=== PATIENT | male | born 1955 | race Caucasian/White ===

== ENCOUNTER 2017-06-22 11:45 | Emergency (ER) | payer MEDICARE ==
[~2017-06-22] VITALS: Ht 172.7 cm; Wt 81.6 kg
[~2017-06-22 11:45] MED LIST: ADV500/50 INH; ALB0.5 INH; ATIVAN; AUG875 PO; AZIT-18 PO; BUDESONIDE NEB; CEP500 PO; DUONEB INH; FORM20VI2 IH; FUR20 PO; FURO-43 PO; GUAI-334 PO; GUAI600T57 PO; HYDR-385 PO; IBU600 PO; IPRA3AMP37 IH; LEVO750T27 PO; LOR5 PO; MELO-150 PO; MON10 PO; MULT1CAP48 PO; OMEP-137 PO; OMEP40CA48 PO; POT10 PO; POT20; PRE10 PO; PRED-1 PO; PROAIRPT IH; SINGULAIR; TIO18R IH; TIO18R INH; VALS160T20 PO
[2017-06-22 11:51] VITALS: BP 159/89
[2017-06-22] MEDS ORDERED: HYDR-4225 PO (12:08)
--- NOTE | 2017-06-22 12:11 | ER Report ---
History and Physical Time Seen By MD: 11:50 Hx. of Stated Complaint: patient reports that he is here for anxiety HPI/ROS CHIEF COMPLAINT: Anxiety HISTORY OF PRESENT ILLNESS: Patient is a 62-year-old male accompanied by his , who presents the ED with complaint of anxiety for the past year that he states has worsened the last couple months. He states that he does have some health issues that have been giving him some increased anxiety including his COPD which she does see a rock splitter for. He does wear oxygen at home. He states that he is on nebulizers for this. 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 He states that he has been given Ativan intermittently by his primary care provider and states that this has been helpful with his anxiety. He states that he has never seen a mental health provider for this. He denies any suicidal or homicidal ideation. REVIEW OF SYSTEMS: Respiratory: No cough, no dyspnea. Cardiovascular: No chest pain, no palpitations. Gastrointestinal: No vomiting, no abdominal pain. Musculoskeletal: No back pain. Allergies: Coded Allergies: No Known Drug Allergies (Verified , 09/07/13) Home Meds Active Scripts Hydroxyzine Hcl (HYDROXYZINE HCL) 25 Mg Tablet, 25 MG PO QID Y for ANXIETY, #20 TAB Prov:DESIRAE URBINA PA-C 06/22/17 Azithromycin 250 Mg Tab (AZITHROMYCIN 250 MG TAB) 250 Mg Tablet, 1 TAB PO QDAY, #4 TAB Prov:MASTER GODDARD DO 12/17/14 Guaifenesin/Codeine Phosphate (GUAIFENESIN AC COUGH SYRUP) 473 Ml Liquid, 5-10 ML PO Q6H for cough, #200 Prov:MASTER GODDARD DO 12/17/14 Reported Medications Levofloxacin 750 Mg Tab (LEVOFLOXACIN 750 MG TAB) 750 Mg Tablet, 750 MG PO HS, # 3 09/09/13 Prednisone 10 Mg Tab (PREDNISONE 10 MG TAB) 10 Mg Tablet, 10 MG PO QDAY TAKE 4 TABS ONCE DAILY FOR 2 DAYS THEN, TAKE 2 TABS ONCE DAILY FOR 2 DAYS THEN, TAKE 1 TAB ONCE DAILY FOR 2 DAYS THEN, OFF! 09/09/13 Omeprazole (OMEPRAZOLE) 40 Mg Capsule., 40 MG PO QDAY 09/09/13 Guaifenesin (MUCINEX) 600 Mg Tablet.er, 600 MG PO BID 09/09/13 Hydrocodone Bit/Acetaminophen (HYDROCODON-ACETAMINOPHEN 5-325) 1 Each Tablet, 1- 2 EACH PO Q6H Y for PAIN 09/09/13 Tiotropium [place] (SPIRIVA) 18 Mcg/Cap Inh, 18 MCG INH DAILY, INH 09/07/13 Ipratropium/Albuterol Sulfate (DUONEB 0.5 MG-3 MG/3 ML SOLN) 3 Ml Ampul.neb, 3 ML IH BID 09/07/13 [Budesonide] No Conflict Check, NEB BID, 0 Refills 02/03/11 Albuterol Sulfate (Proair Hfa) 8.5 Gm Aer.w.adap, 8.5 GM IH Q4H Y for SHORTNESS OF BREATH, 0 Refills 02/03/11 Reviewed Nurses Notes: Yes Hx Smoking: Yes Smoking Status: Current: Every Day Smoker Exposure to Second Hand Smoke?: Yes Hx Substance Use Disorder: No Hx Alcohol Use: Yes (6 PACK/NIGHT) Constitutional Vital Sign - Last 24 Hours 06/22/17 11:51 Temp 97.5 Pulse 98 Resp 20 B/P (MAP) 159/89 Pulse Ox 93 O2 Delivery Room Air Physical Exam General Appearance: The patient is alert, has no immediate need for airway protection and no signs of toxicity. Patient appears to be no acute distress. Eyes: Pupils equal and round no pallor or injection. ENT, Mouth: Mucous membranes are moist. Respiratory: There are no retractions, lungs are clear to auscultation. Cardiovascular: Regular rate and rhythm. Skin: Warm and dry, no rashes. Musculoskeletal: Neck is supple non tender. Extremities are nontender, nonswollen and have full range of motion. Medical Decision Making ED Course/Re-evaluation ED Course Discussed with patient that he should follow up with a mental health care provider for further care of his anxiety. Would like to try him on some hydroxyzine to help with his anxiety. Decision to Disposition Date: Jun 22, 2017 Decision to Disposition Time: 12:06 Depart Departure Latest Vital Signs Vital Signs Date Time Temp Pulse Resp B/P (MAP) Pulse Ox O2 Delivery O2 Flow Rate FiO2 06/22/17 11:51 97.5 98 20 159/89 93 Room Air Impression: Primary Impression: Anxiety Condition: Improved Disposition: HOME OR SELF-CARE Referrals: MELCHOR GODFREY DO (PCP) [facility] New Scripts Hydroxyzine Hcl (HYDROXYZINE HCL) 25 Mg Tablet 25 MG PO QID Y for ANXIETY, #20 TAB Prov: DESIRAE URBINA PA-C 06/22/17 Patient Instructions: Anxiety (ED) Additional Instructions: Follow-up with primary care provider and mental health care provider. If having any worsening or concerning symptoms may return to the emergency department. DESIRAE URBINA PA-C Jun 22, 2017 12:11
== END 2017-06-22 12:23 | disposition home or self-care (01) ==
LOC: ER 11:45
DX: F41.9 Anxiety disorder, unspecified (principal)
CPT/HCPCS: 99281

== ENCOUNTER → 2017-10-12 | Outpatient (CLI) | payer MEDICARE ==
[~2017-10-12] MED LIST changes: +HYDR-4225 PO
[2017-10-12 11:32] LABS: LDL CHOLESTEROL 108 mg/dl
== END ==
LOC: LAB 10:42
PROVIDERS: ATTEND Family Medicine
DX: I10 Essential (primary) hypertension (principal); E78.5 Hyperlipidemia, unspecified; D58.2 Other hemoglobinopathies
CPT/HCPCS: 36415; 82040; 82247; 82310; 82374; 82435; 82465; 82565; 82947; 83718; 84075; 84132; 84155; 84295; 84450; 84460; 84478; 84520; 85027

== ENCOUNTER → 2018-01-22 | Outpatient (CLI) | payer MEDICARE | LOC: LAB 13:15 | PROVIDERS: ATTEND Physician Assistant | DX: Z01.812 Encounter for preprocedural laboratory examination (principal); D44.6 Neoplasm of uncertain behavior of carotid body | CPT/HCPCS: 36415; 82565 ==

== ENCOUNTER → 2018-04-19 | Outpatient (CLI) | payer MEDICARE ==
[2018-04-19 11:32] LABS: LDL CHOLESTEROL 102 mg/dl
== END ==
LOC: LAB 10:45
PROVIDERS: ATTEND Family Medicine
DX: E78.5 Hyperlipidemia, unspecified (principal); D58.2 Other hemoglobinopathies; I10 Essential (primary) hypertension
CPT/HCPCS: 36415; 82040; 82247; 82310; 82374; 82435; 82465; 82565; 82947; 83718; 84075; 84132; 84155; 84295; 84450; 84460; 84478; 84520; 85027

== ENCOUNTER → 2018-06-25 | Outpatient (CLI) | payer MEDICARE ==
--- NOTE | 2018-06-25 14:28 | RADIOLOGY IMAGING REPORT ---
FACILITY: [facility] [place] PATIENT NAME: Rome Mares : 1955 MR: [id number] V: [id number] EXAM DATE: ORDERING PHYSICIAN: MELCHOR GODFREY TECHNOLOGIST: Location: [facility] Patient: Rome Mares : 1955 Visit/Account:[id number] Date of Sevice: 06/25/2018 MR SPINE LUMBAR W/O CON COMPARISON: None Additional pertinent history: Low back pain Technique: Multiplanar multisequence lumbar spine MRI was performed without gadolinium enhancement. FINDINGS: Vertebral body heights and alignment: Grade 1 anterior listhesis of L3 on L4 and L4 on L5. Mild retr olisthesis of L2 on L3 and L5 on S1. Vertebral marrow signal: Type one degenerative endplate changes at L2-L3 and L3-L4. Distal thoracic cord and conus: Mild redundancy of the nerve roots above the level of L3-L4 likely in dicating a high-grade stenosis at this level. The conus ends at L1. Surrounding soft tissues: Negative. Inspection of the disc spaces reveal the following: L5-S1: Mild retrolisthesis of L5 on S1. Posterior broad-based disc protrusion with posteriorly direc shahida osteophytes. Severe bilateral neural foraminal narrowing with mild to moderate canal stenosis. L4-L5: Grade 1 anterior listhesis of L4 on L5. Posterior broad-based disc protrusion with facet hype rtrophic changes. Severe bilateral neural foraminal narrowing with severe canal stenosis. L3-L4: Grade 1 anterior listhesis of L3 on L4 with a posterior broad-based disc protrusion and facet hypertrophic changes. Severe bilateral neural foraminal narrowing with severe canal stenosis. L2-L3: Posterior broad-based disc protrusion with mild retrolisthesis of L2 on L3. Moderate canal st enosis with severe bilateral neural foraminal narrowing. L1-L2: Negative. T12-L1: Negative. IMPRESSION: 1. Multilevel advanced spondylitic change as discussed above. 2. Findings contribute to severe canal stenosis and severe bilateral neural foraminal narrowing at L 3-L4 and L4-L5. Report Dictated By: Paulino Constantion MD at 06/25/2018 2:19 PM Report E-Signed By: Paulino Constantino MD at 06/25/2018 2:24 PM WSN:[id number]
== END ==
LOC: MRI 04:26
PROVIDERS: ATTEND Family Medicine
DX: M54.5 Low back pain (principal)
CPT/HCPCS: 72148

== ENCOUNTER → 2018-08-04 | Outpatient (CLI) | payer MEDICARE ==
--- NOTE | 2018-08-04 08:34 | RADIOLOGY IMAGING REPORT ---
F[place] [facility] [place]IENT NAME: Rome Mares : 1955 MR: [id number] V: [id number] EXAM DATE: ORDERING PHYSICIAN: MELCHOR GODFREY TECHNOLOGIST: Location: [facility] Patient: Rome Mares : 1955 Visit/Account:[id number] Date of Sevice: 08/04/2018 2 VIEWS CHEST INDICATION: COPD. Cough. COMPARISON: 04/13/2017 FINDINGS: Lungs are clear and appear mildly hyperinflated. No focal confluent infiltrate. No effusion or pneumo thorax is seen. Heart size and mediastinal contours are normal. Old healed right inferior rib fractur e seen. Degenerative changes involve the midthoracic spine. This may represent diffuse idiopathic ske letal hyperostosis. Scattered atherosclerosis noted in the aortic arch. IMPRESSION: 1. No radiographic evidence of active disease. 2. Mild hyperinflation. Report Dictated By: Hoang Dias at 08/04/2018 8:26 AM Report E-Signed By: Hoang Dias at 08/04/2018 8:29 AM WSN:[id number]
== END ==
LOC: RAD 07:23
PROVIDERS: ATTEND Family Medicine
DX: R05 Cough (principal); J44.9 Chronic obstructive pulmonary disease, unspecified
CPT/HCPCS: 71046

== ENCOUNTER → 2018-10-19 | Outpatient (CLI) | payer MEDICARE ==
[2018-10-19 12:23] LABS: PLATELET COUNT, AUTOMATED 254 K/uL (150-450)
== END ==
LOC: LAB 12:00
PROVIDERS: ATTEND Family Medicine
DX: N40.0 Benign prostatic hyperplasia without lower urinary tract symptoms (principal); D58.2 Other hemoglobinopathies; E78.5 Hyperlipidemia, unspecified; I10 Essential (primary) hypertension
CPT/HCPCS: 36415; 82248; 85025; G0103; 82040; 82247; 82310; 82374; 82435; 82565; 82947; 84075; 84132; 84153; 84155; 84295; 84450; 84460; 84520

== ENCOUNTER → 2018-11-01 | Outpatient (CLI) | payer MEDICARE ==
[~2018-11-01] MED LIST changes: +IOPAMIDOL 76% 100 ML INFUS BTL 100 ML ONE
--- NOTE | 2018-11-01 14:34 | RADIOLOGY IMAGING REPORT ---
FACILITY: [facility] PATIENT NAME: Rome Mares : 1955 MR: [id number] V: [id number] EXAM DATE: ORDERING PHYSICIAN: MELCHOR GODFREY TECHNOLOGIST: Location: [facility] [place] Patient: Rome Mares : 1955 Visit/Account:[id number] Date of Sevice: 11/01/2018 CT CHEST (CONTRAST) History: COPD, hypoxemia TECHNIQUE: Contiguous axial images were performed through the chest to the level of the adrenal gla nds following the administration of IV contrast. Coronal and sagittal reformatting was also perform ed.Dose Lowering Technique One of the following dose optimization techniques was utilized in the performance of this exam: Autom ated exposure control; adjustment of the mA and/or kV according to the patient's size; or use of an i terative reconstruction technique. Specific details can be referenced in the facility's radiology C T exam operational policy. Contrast: 75 mL Isovue-[id number] COMPARISON STUDIES: May 19, 2017 Lungs / Pleura: Centrilobular emphysema again seen throughout the lungs. There is no evidence of f ocal infiltrates or pleural effusions. Mediastinum/nodes: 2 x 0.8 cm subcarinal lymph nodes remain stable Heart and vessels: There coronary artery calcifications present Musculoskeletal / Body wall: Incompletely imaged is a sclerotic lesion in the proximal right humeru s although the visualized portion appears relatively unchanged. There are spondylotic changes in the thoracic spine Upper abdomen: Visualized abdominal viscera negative. IMPRESSION: Centrilobular emphysema again seen throughout the lungs with no evidence of focal infiltrates or pleu ral effusions. Additional chronic findings as described Report Dictated By: Roma Blackburn MD at 11/01/2018 2:24 PM Report E-Signed By: Roma Blackburn MD at 11/01/2018 2:30 PM WSN:[email or web address]
== END ==
LOC: CT 02:22
PROVIDERS: ATTEND Family Medicine
DX: J44.9 Chronic obstructive pulmonary disease, unspecified (principal); I25.10 Atherosclerotic heart disease of native coronary artery without angina pectoris; R59.0 Localized enlarged lymph nodes
CPT/HCPCS: 71260; Q9967